=== PATIENT | female | born 1955 | race Caucasian/White ===

== ENCOUNTER 2019-04-12 19:10 | Inpatient (IN) | payer MEDICAID, MEDICARE ==
[~2019-04-12] VITALS: Ht 152.4 cm; Wt 72.8 kg
[2019-04-12] MEDS ORDERED: METO50TA7 PO (19:20)
[2019-04-12] MEDS ORDERED: GABA-1171 PO (19:20)
[2019-04-12] MEDS ORDERED: SIMV20TA2 PO (19:20)
[2019-04-12] MEDS ORDERED: LOSA50TA5 PO (19:20)
[2019-04-12 20:00] LABS: BASO # 0.1 10^3/uL (0.0-0.2); BASO % 0.8 % (0.0-1.0); EOS # 0.1 10^3/uL (0.0-0.50); EOS % 0.5 % (0.0-3.0); HEMATOCRIT 45.6 % (36.0-47.0); HEMOGLOBIN 16.4 g/dl (12.0-15.5); LYMPH # 4.1 10^3/uL (1.5-4.5); LYMPH % 36.5 % (24.0-44.0); MEAN CORPUSCULAR HEMOGLOBIN 33.2 pg (27.0-33.0); MEAN CORPUSCULAR VOLUME 92.3 fl (80.0-96.0); MONO # 0.7 10^3/uL (0.0-0.8); MONO % 6.7 % (0.0-5.0); NEUTROPHILS # 6.1 10^3/uL (1.8-7.7); NEUTROPHILS % 55.2 % (36.0-66.0); PLATELET COUNT, AUTOMATED 320 10^3/uL (150-450); RED BLOOD COUNT 4.94 10^6/uL (4.00-5.40); WHITE BLOOD COUNT 11.1 10^3/uL (4.0-10.0)
[2019-04-12] MEDS ORDERED: MECLIZINE 25 MG TABLET PO ONE (20:00)
[2019-04-12 20:04] LABS: INR 0.91; PROTHROMBIN TIME 12.3 SECONDS (12.1-14.4)
--- NOTE | 2019-04-12 20:18 | REP ---
Clinical: Acute cerebrovascular accident. Comparison: None. Findings: Age-related atrophy and microvascular ischemic changes are appreciated. The ventricles and sulci are symmetric. Christine-white differentiation is maintained. There is no evidence for acute intracranial hemorrhage, mass/mass effect, pathology or infarction. No extra-axial fluid collection. Calvarium is intact. Paranasal sinuses and mastoid air cells are clear. Impression: Age related atrophy and microvascular ischemic changes. No acute intracranial hemorrhage, infarction, or mass/mass effect. Electronically Signed by Rio Hernandez MD 04/12/2019 08:10 P
--- NOTE | 2019-04-12 20:19 | REP ---
Clinical: Cerebrovascular accident. Comparison: None. Findings: Mediastinum and cardiac silhouette are normal. Increased interstitial markings and mild prominent pulmonary vasculature is appreciated suggesting the possibility of bronchitis as well as mild pulmonary vascular congestion. No consolidation. No effusion. No pneumothorax. Skeletal structures intact. Impression: Increased coarsened interstitial markings and mild prominent pulmonary vasculature. Differential diagnosis includes but is not limited to chronic change, mild interstitial edema, and bronchitis. Electronically Signed by Rio Hernandez MD 04/12/2019 08:11 P
[2019-04-12 20:25] LABS: BLOOD UREA NITROGEN 8 MG/DL (7-18); CALCIUM LEVEL 9.2 MG/DL (8.8-10.2); CARBON DIOXIDE LEVEL 29 MEQ/L (21-32); CHLORIDE LEVEL 102 MEQ/L (98-107); CPK CREATINE PHOSPHOKINASE 119 U/L (26-192); CREATININE FOR GFR 0.78 MG/DL (0.55-1.30); GLOMERULAR FILTRATION RATE > 60.0 (>45); GLUCOSE, FASTING 117 MG/DL (70-100); MB/CK RELATIVE INDEX 2.02 (< OR =4); POTASSIUM SERUM 2.7 MEQ/L (3.5-5.1); SODIUM LEVEL 139 MEQ/L (136-145); TROPONIN I < 0.02 NG/ML (< 0.10)
[2019-04-12 20:42] LABS: MAGNESIUM LEVEL 1.6 MG/DL (1.8-2.4)
[2019-04-12] MEDS ORDERED: KCL 10MEQ/100ML SWI (KRUN) 10 MEQ in APPROPRIATE DILUENT 1 EA IV ONE (21:15)
[2019-04-12] MEDS ORDERED: POTASSIUM CHLORIDE 10 MEQ SR TABLET PO ONE (21:15)
[2019-04-12] MEDS ORDERED: MAGNESIUM OXIDE 400 MG TAB (MAG-OX) PO ONE (21:15)
[2019-04-12] MEDS ORDERED: MAG SULF 1GM/100ML (MAG RUN) 1 GM in APPROPRIATE DILUENT 1 EA IV ONE (21:15)
[2019-04-13] MEDS ORDERED: ASPI81TA21 PO (02:04)
[2019-04-13] MEDS ORDERED: ESOM1CAP5 PO (02:04)
[2019-04-13] MEDS ORDERED: POTA10TA17 PO (02:04)
[2019-04-13] MEDS ORDERED: FLUTISP (02:04)
[2019-04-13] MEDS ORDERED: ESTR1TD TD (02:04)
[2019-04-13] MEDS ORDERED: SPIRONOLACTONE 25 MG TAB PO SCH (02:30)
[2019-04-13] MEDS ORDERED: POTASSIUM CHLORIDE 10 MEQ SR TABLET PO ONE ×2 (02:45)
[2019-04-13] MEDS: KCL 10MEQ/100ML SWI (KRUN) 10 MEQ in APPROPRIATE DILUENT 1 EA IV SCH ×2 (02:48→05:07)
--- NOTE | 2019-04-13 03:12 | HPEPDOC ---
General Date of Admission April 13, 2019 at 02:23 Date of Service: April 13, 2019 Chief Complaint The patient is a 63-year-old female admitted with a reason for visit of Hypokalemia/ Hypomagnesemia. Source: Patient, RN/MD Exam Limitations: No limitations Severity: Moderate Associated Symptoms: Weakness, Dizziness History of Present Illness 63 year old female a with PMH of Hypertension, Hyperlipidemia, hypokalemia presented to the ED with chief complaints of dizziness for 2 days and increasing weakness for 2 to 3 weeks. She has noticed that she has been taking 3 to 4 naps during the day for the past 3 weeks before she would take only 1 nap during the day. The dizziness was not associated with any vision changes or any sensation of spinning of self or spinning of the room. She did not have any fullness of the ears. The weakness was all over her body in all 4 or her limbs without any pain or spasm. She did not have any diarrhea or vomiting. SHe did not have any fever or chills. In the ED she was found to be severely hypokalemic at 2.7 and hypomagnesemic also. She was started on potassium and magnesium supplementation. Even after getting 90 meq of potassium her potassium still remained at 2.7 after 3 hours. in the ED she was also found to have impacted wax in her right ear which was irrigated. So She was admitted. SHe was also hypertensive on presentation with Bp of 187/87. She was admitted for Hypokalemia wit hypomagnesemia with EKG changes. He ekg showed slight flattening of T waves. Home Medications Scheduled Aspirin (Aspir-Low) 81 Mg Tablet.dr, 81 MG PO DAILY, (Reported) Esomeprazole Magnesium (Esomeprazole Magnesium) 40 Mg Capsule.dr, 40 MG PO DAILY, (Reported) Estradiol (Estradiol) 0.1 Mg Patch.tdwk, 0.1 MG TD QWEEK, (Reported) WEDNESDAYS Gabapentin (Gabapentin) 100 Mg Capsule, 200 MG PO BID, (Reported) Losartan/Hydrochlorothiazide (Losartan-Hctz 50-12.5 mg Tab) 1 Each Tablet, 1 TAB PO DAILY, (Reported) Metoprolol Tartrate (Metoprolol Tartrate) 50 Mg Tablet, 75 MG PO BID, (Reported) Potassium Chloride (Potassium Chloride) 10 Meq Tab.er.prt, 10 MEQ PO DAILY, (Reported) Simvastatin (Simvastatin) 20 Mg Tablet, 20 MG PO QPM, (Reported) Scheduled PRN Fluticasone Propionate (Fluticasone Propionate) 16 Gm [place].susp, 1 SPRAY NA BID PRN for NASAL CONGESTION, (Reported) Allergies Coded Allergies: Penicillins (Verified Allergy, Severe, HEART STOPPED ( A CHILD), 04/13/19) cephalexin (Verified Allergy, Intermediate, PURPLE SPLOTCHES ON SKIN, 04/13/19) Past Medical History Medical History Hypertension, hyperlipidemia, hypokalemia, spinal problem Surgical History Total abdominal hystrectomy and ophorectomy, appendectomy, laparoscopy and lysis of adhesions and removal of a mass from the wall of sigmoid colon Family History Significant Family History: Hypertension Social History * Smoker: current smoker, greater than 1 pack/day Alcohol: Denies Drugs: denies A-FIB/CHADSVASC A-FIB History Current/History of A-Fib/PAF?: No Review of Systems Constitutional: Reports: Night Sweats, Weakness, Fatigue; Denies: Chills, Fever Eyes: Denies: Pain, Vision change ENT: Reports: Ear Pain (right ear had impacted wax which was flushed) Skin: Denies: Rash, Lesions, Breakdown Pulmonary: Denies: Dyspnea, Cough Cardiovascular: Reports: Lt Headedness; Denies: Chest Pain, Palpitations, Orthopnea, Paroxysmal Noc. Dyspnea Gastrointestinal: Denies: Nausea, Vomiting, Abdominal Pain, Diarrhea Genitourinary: Reports: Frequency Hematologic: Denies: Bruising, Bleeding Excessively Musculoskeletal: Denies: Neck Pain, Back Pain, Joint Pain, Muscle Pain, Spasms Neurological: Reports: Weakness; Denies: Numbness, Incoordination, Change in speech, Confusion, Seizures, Other Symptoms Physical Examination General Exam: Positive: Alert, Cooperative, No Acute Distress Eye Exam: Positive: PERRLA, Conjunctiva & lids normal, EOMI; Negative: Sclera icteric ENT Exam: Positive: Atraumatic, Mucous membr. moist/pink, Pharynx Normal Neck Exam: Positive: Supple; Negative: JVD, thyromegaly Chest Exam: Positive: Clear to auscultation, Normal air movement Heart Exam: Positive: Rate Normal, Regular Rhythm, Normal S1, Normal S2; Negative: Murmurs, Rubs Telemetry: Positive: No significant arrhythmia Abdomen Exam: Positive: Normal bowel sounds, Soft; Negative: Tenderness, Hepatospenomegaly Extremity Exam: Positive: Normal pulses; Negative: Clubbing, Cyanosis, Edema Skin Exam: Positive: Nl turgor and temperature; Negative: Breakdown, Lesion Neuro Exam: Positive: Normal Gait, Normal Speech, Cranial Nerves 3-12 NL, Reflexes 2+ Psych Exam: Positive: Mental status NL, Mood NL, Oriented x 3 Vital Signs Vital Signs Date Time Temp Pulse Resp B/P (MAP) Pulse Ox O2 Delivery O2 Flow Rate FiO2 04/12/19 22:45 58 20 159/66 (97) 93 Room Air 04/12/19 19:10 97.2 Laboratory Data Labs 24H Laboratory Tests 2 04/12/19 19:29: Immature Granulocyte % (Auto) 0.3, White Blood Count 11.1H, Red Blood Count 4.94, Hemoglobin 16.4H, Hematocrit 45.6, Mean Corpuscular Volume 92.3, Mean Corpuscular Hemoglobin 33.2H, Mean Corpuscular Hemoglobin Concent 36.0, Red Cell Distribution Width 12.8, Platelet Count 320, Neutrophils (%) (Auto) 55.2, Lymphocytes (%) (Auto) 36.5, Monocytes (%) (Auto) 6.7H, Eosinophils (%) (Auto) 0.5, Basophils (%) (Auto) 0.8, Neutrophils # (Auto) 6.1, Lymphocytes # (Auto) 4.1, Monocytes # (Auto) 0.7, Eosinophils # (Auto) 0.1, Basophils # (Auto) 0.1, Nucleated Red Blood Cells % (auto) 0.0, Prothrombin Time 12.3, Prothromb Time International Ratio 0.91, Activated Partial Thromboplast Time 30.0, Anion Gap 8, Glomerular Filtration Rate > 60.0, Blood Urea Nitrogen 8, Creatinine 0.78, Sodium Level 139, Potassium Level 2.7*L, Chloride Level 102, Carbon Dioxide Level 29, Calcium Level 9.2, Total Creatine Kinase 119, Magnesium Level 1.6L, Cr eatine Kinase MB 2.0, Creatine Kinase MB Relative Index 2.02, Troponin I < 0.02 04/12/19 20:14: Bedside Glucose (Misc Panel) 131H 04/13/19 01:15: POC Glucose (Misc Panel) 147H, POC Sodium (Misc Panel) 140, POC Potassium (Misc Panel) 2.7*L, POC Chloride (Misc Panel) 101, POC Total CO2 (Misc Panel) 26.0, POC Blood Urea Nitrogen (Misc Panel 4L, POC Ionized Calcium (Misc Panel) 4.5, POC Creatinine (Misc Panel) 0.5L, POC Hematocrit (Misc Panel) 42.0 CBC/BMP Laboratory Tests 04/12/19 19:29 Red Blood Count 4.94, Mean Corpuscular Volume 92.3, Mean Corpuscular Hemoglobin 33.2 H, Mean Corpuscular Hemoglobin Concent 36.0, Red Cell Distribution Width 12.8, Neutrophils (%) (Auto) 55.2, Lymphocytes (%) (Auto) 36.5, Monocytes (%) (Auto) 6.7 H, Eosinophils (%) (Auto) 0.5, Basophils (%) (Auto) 0.8, Neutrophils # (Auto) 6.1, Lymphocytes # (Auto) 4.1, Monocytes # (Auto) 0.7, Eosinophils # (Auto) 0.1, Basophils # (Auto) 0.1, Calcium Level 9.2, Total Creatine Kinase 119 Assessment/Plan 63 year old female a with PMH of Hypertension, Hyperlipidemia, hypokalemia presented to the ED with chief complaints of dizziness for 2 days and increasing weakness for 2 to 3 weeks. She has noticed that she has been taking 3 to 4 naps during the day for the past 3 weeks before she would take only 1 nap during the day. The dizziness was not associated with any vision changes or any sensation of spinning of self or spinning of the room. She did not have any fullness of the ears. The weakness was all over her body in all 4 or her limbs without any pain or spasm. She did not have any diarrhea or vomiting. SHe did not have any f ever or chills. In the ED she was found to be severely hypokalemic at 2.7 and hypomagnesemic also. She was started on potassium and magnesium supplementation. Even after getting 90 meq of potassium her potassium still remained at 2.7 after 3 hours. So She was admitted. SHe was also hypertensive on presentation with Bp of 187/87. She was admitted for Hypokalemia wit hypomagnesemia with EKG changes. Hypokalemia and Hypomagnesemia will continue with IV and oral supplementation Also will change her HCTZ to spironolactone Hypertension with hypokalemia raises the suspicion for hyperaldosteronism as a cause. Though the hypertension in this patient's case started after age 48 but still hyperaldosteronism is possible will order aldosterone an renin levels. will also consider CT abdomen to look at the adrenal glands. Hyperlipidemia continue statin Impacted wax in right ear this was irrigated in the ED. DVT prophylaxis ordered. Plan / VTE VTE Prophylaxis Ordered?: Yes EDEN LUCAS MD April 13, 2019 03:07
[2019-04-13 03:34] VITALS: BP 155/79
[2019-04-13] MEDS ORDERED: MAG SULF 1GM/100ML (MAG RUN) 1 GM in APPROPRIATE DILUENT 1 EA IV ONE (04:45)
[2019-04-13] MEDS ORDERED: NS 1,000 ML IV SCH (04:45)
[2019-04-13 06:00] VITALS: BP 140/66
[2019-04-13 06:12] LABS: BLOOD UREA NITROGEN 6 MG/DL (7-18); CALCIUM LEVEL 9.2 MG/DL (8.8-10.2); CARBON DIOXIDE LEVEL 28 MEQ/L (21-32); CHLORIDE LEVEL 107 MEQ/L (98-107); GLOMERULAR FILTRATION RATE > 60.0 (>45); GLUCOSE, FASTING 126 MG/DL (70-100); MAGNESIUM LEVEL 2.6 MG/DL (1.8-2.4); POTASSIUM SERUM 3.8 MEQ/L (3.5-5.1); SODIUM LEVEL 140 MEQ/L (136-145)
--- NOTE | 2019-04-13 06:32 | ECGEPIP ---
[facility] - ED Test Date: 2019-04-12 Pat Name: NATALIE BLACK Department: Room: - Gender: Female [employer] Officer: RAIMUNDO : 1955 Requested By: ALISHA Rosales Order Number: [id number] Reading MD: Marcelino Amin Measurements Intervals Transfer Rate: 63 P: 31 MI: 160 QRS: 10 QRSD: 95 T: 4 QT: 427 QTc: 438 Interpretive Statements SINUS RHYTHM LOW QRS VOLTAGE IN PRECORDIAL LEADS DIFFUSE NONSPECIFIC ST T WAVE CHANGES VS ISCHEMIA CLINICAL CORRELATION ADVISED Electronically Signed on 04-13-2019 6:32:13 EDT by Marcelino Amin
[2019-04-13] MEDS: GABAPENTIN 100 MG CAP PO SCH ×2 (08:21→22:03)
[2019-04-13] MEDS: ASPIRIN 81 MG ENTERIC TAB PO SCH (08:21)
[2019-04-13] MEDS: SPIRONOLACTONE 25 MG TAB PO SCH (08:21)
[2019-04-13] MEDS: METOPROLOL TART 50 MG TAB PO SCH ×2 (08:22→22:05)
[2019-04-13] MEDS: ENOXAPARIN 40 MG/0.4 ML SYRINGE (J1650) SC SCH (08:23)
[2019-04-13] MEDS ORDERED: LOSARTAN 50 MG TAB PO SCH (09:00)
[2019-04-13] MEDS ORDERED: POTASSIUM CHLORIDE 10 MEQ SR TABLET PO SCH (09:00)
[2019-04-13 14:00] VITALS: BP 127/64
--- NOTE | 2019-04-13 15:28 | IPNPDOC ---
Date Seen The patient was seen on 04/13/19. Progress Note SUBJECTIVE: Patient continues to complain of diarrhea, although her weakness is significantly better and she doesn't have the heaviness she felt her arm she had the previous days otherwise patient denies chest pain, shortness breath, nausea, vomiting, fevers, chills OBJECTIVE PHYSICAL EXAMINATION: VITAL SIGNS: Please see below. GENERAL: Pleasant elderly woman sitting up in bed awake alert oriented speaking in complete sentences no acute distress HEENT: Moist mucous membranes no elevation and CVP CARDIOVASCULAR: S1 S2 regular no additional heart sounds appreciated. RESPIRATORY: Clear to auscultation bilaterally. ABDOMINAL: Bowel sounds present abdomen soft and nontender EXTREMITIES: No clubbing cyanosis or edema NEUROLOGICAL: Spontaneously moves all 4 extremities cranial 2 through 12 grossly intact no gross focal deficits appreciated PSYCHOLOGICAL: Appropriate LABORATORY DATA, MICROBIOLOGY: Please see below. IMAGING STUDIES: Chest x-ray:Increased coarsened interstitial markings and mild prominent pulmonary vasculature. Differential diagnosis includes but is not limited to chronic change, mild interstitial edema, and bronchitis. Head CT:Age related atrophy and microvascular ischemic changes. No acute intracranial hemorrhage, infarction, or mass/mass effect. DVT prophylaxis ordered?: [Lovenox ASSESSMENT AND PLAN: This is a 63-year-old female with weakness secondary to hypokalemia. PROBLEMS: 1. Weakness secondary to hypokalemia: Significantly improved today physical therapy occupational therapy and been ordered. She's been discontinued from hydrochlorothiazide as started on spironolactone in addition to 40 mEq potassium daily and losartan. In the face of this she presented hypokalemic she has chronic loose stools and has had more bowel movements daily than usual. I have ordered a GI PCR panel. She informed that she urinates quite a bit as well which she also drinks a significant amount of caffeine. Is unclear if her losses are GI versus urinary. I will check a trans-tubular potassium gradient. In the setting of her hypertension and hypokalemia a renin aldosterone levels have been ordered as well. 2. Hypertension: Controlled, continue with her spironolactone losartan and metoprolol is fairly resistant hypertension such a renin aldosterone levels were checked every benefit from a further workup for secondary causes of hypertension on the outpatient setting. 3. Gastroesophageal reflux disease: Continue with PPI. 4. Chronic back pain related to a tethered spine: Continue with gabapentin 5. Dyslipidemia: Continue simvastatin DISPOSITION: Pending PT OT clinical improvement. VS, I&O, 24H, Fishbone Vital Signs/I&O Vital Signs Date Time Temp Pulse Resp B/P (MAP) Pulse Ox O2 Delivery O2 Flow Rate FiO2 04/13/19 14:00 97.9 57 18 127/64 (85) 97 04/13/19 03:16 Room Air I&O- Last 24 Hours up to 6 AM 04/13/19 06:00 Intake Total 200 ml Balance 200 ml Laboratory Data 24H LABS Laboratory Tests 2 04/12/19 19:29: Immature Granulocyte % (Auto) 0.3, White Blood Count 11.1H, Red Blood Count 4.94, Hemoglobin 16.4H, Hematocrit 45.6, Mean Corpuscular Volume 92.3, Mean Corpuscular Hemoglobin 33.2H, Mean Corpuscular Hemoglobin Concent 36.0, Red Cell Distribution Width 12.8, Platelet Count 320, Neutrophils (%) (Auto) 55.2, Lymphocytes (%) (Auto) 36.5, Monocytes (%) (Auto) 6.7H, Eosinophils (%) (Auto) 0.5, Basophils (%) (Auto) 0.8, Neutrophils # (Auto) 6.1, Lymphocytes # (Auto) 4.1, Monocytes # (Auto) 0.7, Eosinophils # (Auto) 0.1, Basophils # (Auto) 0.1, Nucleated Red Blood Cells % (auto) 0.0, Prothrombin Time 12.3, Prothromb Time International Ratio 0.91, Activated Partial Thromboplast Time 30.0, Anion Gap 8, Glomerular Filtration Rate > 60.0, Blood Urea Nitrogen 8, Creatinine 0.78, Sodium Level 139, Potassium Level 2.7*L, Chloride Level 102, Carbon Dioxide Level 29, Calcium Level 9.2, Total Creatine Kinase 119, Magnesium Level 1.6L, Creatine Kinase MB 2.0, Creatine Kinase MB Relative Index 2.02, Troponin I < 0.02 04/12/19 20:14: Bedside Glucose (Misc Panel) 131H 04/13/19 01:15: POC Glucose (Misc Panel) 147H, POC Sodium (Misc Panel) 140, POC Potassium (Misc Panel) 2.7*L, POC Chloride (Misc Panel) 101, POC Total CO2 (Misc Panel) 26.0, POC Blood Urea Nitrogen (Misc Panel 4L, POC Ionized Calcium (Misc Panel) 4.5, POC Creatinine (Misc Panel) 0.5L, POC Hematocrit (Misc Panel) 42.0 04/13/19 05:30: Anion Gap 5L, Glomerular Filtration Rate > 60.0, Blood Urea Nitrogen 6L, Creatinine 0.70, Sodium Level 140, Potassium Level 3.8#, Chloride Level 107, Carbon Dioxide Level 28, Calcium Level 9.2, Magnesium Level 2.6H CBC/BMP Laboratory Tests 04/12/19 19:29 Red Blood Count 4.94, Mean Corpuscular Volume 92.3, Mean Corpuscular Hemoglobin 33.2 H, Mean Corpuscular Hemoglobin Concent 36.0, Red Cell Distribution Width 12.8, Neutrophils (%) (Auto) 55.2, Lymphocytes (%) (Auto) 36.5, Monocytes (%) (Auto) 6.7 H, Eosinophils (%) (Auto) 0.5, Basophils (%) (Auto) 0.8, Neutrophils # (Auto) 6.1, Lymphocytes # (Auto) 4.1, Monocytes # (Auto) 0.7, Eosinophils # (Auto) 0.1, Basophils # (Auto) 0.1, Calcium Level 9.2, Total Creatine Kinase 119 04/13/19 05:30 Calcium Level 9.2 JARAD MORALES MD April 13, 2019 15:28
[2019-04-13 19:30] LABS: POTASSIUM RANDOM URINE 23.1 MEQ/L
[2019-04-13] MEDS ORDERED: SIMVASTATIN 20 MG TAB PO SCH (21:00)
[2019-04-13] MEDS: VANCOMYCIN ORAL SOL 250MG/5ML ORAL SYRINGE PO SCH ×2 (21:54→23:05)
[2019-04-13 22:00] VITALS: BP 159/74
[2019-04-14] MEDS: VANCOMYCIN ORAL SOL 250MG/5ML ORAL SYRINGE PO SCH ×2 (05:50→12:16)
[2019-04-14 06:00] VITALS: BP 166/74
[2019-04-14 06:12] LABS: BASO # 0.1 10^3/uL (0.0-0.2); BASO % 0.9 % (0.0-1.0); EOS # 0.1 10^3/uL (0.0-0.50); EOS % 0.9 % (0.0-3.0); HEMATOCRIT 44.7 % (36.0-47.0); HEMOGLOBIN 15.2 g/dl (12.0-15.5); LYMPH # 4.4 10^3/uL (1.5-4.5); LYMPH % 48.2 % (24.0-44.0); MEAN CORPUSCULAR HEMOGLOBIN 31.6 pg (27.0-33.0); MEAN CORPUSCULAR VOLUME 92.9 fl (80.0-96.0); MONO # 0.7 10^3/uL (0.0-0.8); MONO % 8.1 % (0.0-5.0); NEUTROPHILS # 3.8 10^3/uL (1.8-7.7); NEUTROPHILS % 41.6 % (36.0-66.0); PLATELET COUNT, AUTOMATED 288 10^3/uL (150-450); RED BLOOD COUNT 4.81 10^6/uL (4.00-5.40); WHITE BLOOD COUNT 9.1 10^3/uL (4.0-10.0)
[2019-04-14 06:41] LABS: BLOOD UREA NITROGEN 9 MG/DL (7-18); CALCIUM LEVEL 9.3 MG/DL (8.8-10.2); CARBON DIOXIDE LEVEL 25 MEQ/L (21-32); CHLORIDE LEVEL 109 MEQ/L (98-107); CREATININE FOR GFR 0.79 MG/DL (0.55-1.30); GLOMERULAR FILTRATION RATE > 60.0 (>45); GLUCOSE, FASTING 96 MG/DL (70-100); SODIUM LEVEL 139 MEQ/L (136-145)
[2019-04-14 08:34] VITALS: BP 158/78
[2019-04-14] MEDS: GABAPENTIN 100 MG CAP PO SCH (08:34)
[2019-04-14] MEDS: SPIRONOLACTONE 25 MG TAB PO SCH (08:35)
[2019-04-14] MEDS: ASPIRIN 81 MG ENTERIC TAB PO SCH (08:35)
[2019-04-14] MEDS: ENOXAPARIN 40 MG/0.4 ML SYRINGE (J1650) SC SCH (08:36)
[2019-04-14] MEDS ORDERED: LOSARTAN 50 MG TAB PO SCH (09:00)
[2019-04-14] MEDS ORDERED: METOPROLOL TART 50 MG TAB PO SCH (09:00)
[2019-04-14] MEDS ORDERED: FIRV50SO PO (11:25)
[2019-04-14] MEDS ORDERED: ALDA25TA2 PO (11:43)
[2019-04-14] MEDS ORDERED: COZA50TA PO (11:43)
[2019-04-14] MEDS ORDERED: LOPR1TAB6 PO (11:43)
--- NOTE | 2019-04-14 12:58 | DS.PDOC ---
Discharge Summary General Date of Admission April 13, 2019 at 02:23 Date of Discharge 04/14/2019 Discharge Summary DISCHARGE DIAGNOSIS:C. difficile colitis SECONDARY DIAGNOSIS: 1. Hypokalemia 2. Hypomagnesemia 3. Diarrhea 4. Weakness 5. Tethered spine with chronic back pain 6. Gastroesophageal reflux disease 7. Dyslipidemia PROCEDURES PERFORMED DURING STAY: None. CONSULTANTS: None HOSPITAL COURSE: Patient is a 63-year-old female with a history of hypertension and hypokalemia who presented with significant weakness she was found to be fairly severely hypokalemic as well as hypomagnesemic. Upon further history taking she admitted to have having significantly more bowel movements than usual. She is normally constipated secondary to pain medication however lately for the last several days she has not been well at all and has been having several bowel movements per day. A GI PCR panel was collected which did return positive for C. difficile. The patient's potassium and magnesium were supplemented aggressively she was started on by mouth vancomycin had very good resolution of her symptoms. She was seen and evaluated by occupational and physical therapy and cleared. There was some concern for hypokalemia in the setting of hypertension as such her renin aldosterone levels were checked and are currently pending at the time of discharge. She is normally on losartan she was started on spironolactone as well during the stay in her home standing potassium supplementation has been discontinued. Her home hydrochlorothiazide is discontinued as well and her blood pressures but optimally controlled. DISCHARGE MEDICATIONS: Please see below. ALLERGIES: Please see below. SUBJECTIVE: Patient denies any further complaints of diarrhea or significant bowel movements. She tells me that her weakness has resolved and she feels back to her normal. She denies abdominal pain otherwise patient denies chest pain, shortness breath, nausea, vomiting, fevers, chills OBJECTIVE PHYSICAL EXAMINATION: VITAL SIGNS: Please see below. GENERAL: Pleasant elderly woman sits up too great me as I enter the room alert oriented speaking in complete sentences no acute distress HEENT: Moist mucous membranes no elevation and CVP CARDIOVASCULAR: S1 S2 regular no additional heart sounds appreciated. RESPIRATORY: Clear to auscultation bilaterally. ABDOMINAL: Bowel sounds present abdomen soft and nontender fairly benign exam EXTREMITIES: No clubbing cyanosis or edema. NEUROLOGICAL: Spontaneously moves all 4 extremities cranial 2 through 12 grossly intact no gross focal deficits appreciated PSYCHOLOGICAL: Appropriate LABORATORY DATA, MICROBIOLOGY: Please see below. IMAGING STUDIES: Chest x-ray:Increased coarsened interstitial markings and mild prominent pulmonary vasculature. Differential diagnosis includes but is not limited to chronic change, mild interstitial edema, and bronchitis. Head CT:Age related atrophy and microvascular ischemic changes. No acute intracranial hemorrhage, infarction, or mass/mass effect. DVT prophylaxis ordered?:Lovenox ASSESSMENT AND PLAN: This is a 63-year-old female with weakness secondary to hypokalemia secondary to C. difficile colitis PROBLEMS: 1. Weakness secondary to hypokalemia secondary to C. difficile colitis: Her weakness has resolved she's been cleared by physical therapy and occupational therapy. Her hypokalemia has resolved. She is not having significant bowel movements any further she is to continue by mouth vancomycin for 10 day course w e did call the pharmacy and ensure that this isn't affordable medication for her and covered by her insurance. In regards to her hypokalemia renin and aldosterone level is currently pending as of a history of hypertension that was of concern for this as a potential etiology for her constellation of hypertension and hypokalemia. However given the increased frequency of her bowel movements are more suspicious for this being secondary to C. difficile. Her home under chlorothiazide has been discontinued she's been started on spironolactone her home potassium supplementation as has been discontinued I have informed her she should would benefit from a recheck of her potassium level within the next 2 weeks for primary care provider's office. 2. Hypertension: Controlled, continue with her spironolactone losartan and metoprolol she has fairly resistant hypertension such a renin aldosterone levels were checked every benefit from a further workup for secondary causes of hypertension on the outpatient setting. 3. Gastroesophageal reflux disease: Continue with PPI. Her PPI may be a predisposing factor for her C. difficile colitis infection I've informed her she should review itsnecessity with her primary care provider 4. Chronic back pain related to a tethered spine: Continue with gabapentin 5. Dyslipidemia: Continue simvastatin 6. Bradycardia: She is known to be mildly bradycardic overnight asymptomatic into the 40s. Her home beta angelic dose has been titrated down from 75 mg twice a day to 50 mg twice a day and her heart rate is improved this morning DISPOSITION: Home to self-care. DISCHARGE CONDITION: Improved and Stable. FOLLOW UP: PCP within 7 days ACTIVITY: As prior to admission. DIET: As prior to admission TIME SPENT ON DISCHARGE: 50 minutes Vital Signs/I&Os Vital Signs Date Time Temp Pulse Resp B/P (MAP) Pulse Ox O2 Delivery O2 Flow Rate FiO2 04/14/19 08:34 81 158/78 04/14/19 06:00 97.9 18 97 04/13/19 03:16 Room Air I&O- Last 24 Hours up to 6 AM 04/14/19 06:00 Intake Total 1890 ml Output Total 80 ml Balance 1810 ml Laboratory Data Labs 24H Laboratory Tests 2 04/13/19 18:35: Urine Random Creatinine 235.0, Urine Random Potassium 23.1 04/14/19 06:00: Immature Granulocyte % (Auto) 0.3, White Blood Count 9.1, Red Blood Count 4.81, Hemoglobin 15.2, Hematocrit 44.7, Mean Corpuscular Volume 92.9, Mean Corpuscular Hemoglobin 31.6, Mean Corpuscular Hemoglobin Concent 34.0, Red Cell Distribution Width 12.9, Platelet Count 288, Neutrophils (%) (Auto) 41.6, Lymphocytes (%) ( Auto) 48.2H, Monocytes (%) (Auto) 8.1H, Eosinophils (%) (Auto) 0.9, Basophils (%) (Auto) 0.9, Neutrophils # (Auto) 3.8, Lymphocytes # (Auto) 4.4, Monocytes # (Auto) 0.7, Eosinophils # (Auto) 0.1, Basophils # (Auto) 0.1, Nucleated Red Blood Cells % (auto) 0.0, Anion Gap 5L, Glomerular Filtration Rate > 60.0, Blood Urea Nitrogen 9, Creatinine 0.79, Sodium Level 139, Potassium Level 4.0, Chloride Level 109H, Carbon Dioxide Level 25, Calcium Level 9.3 CBC/BMP Laboratory Tests 04/14/19 06:00 Red Blood Count 4.81, Mean Corpuscular Volume 92.9, Mean Corpuscular Hemoglobin 31.6, Mean Corpuscular Hemoglobin Concent 34.0, Red Cell Distribution Width 12.9, Neutrophils (%) (Auto) 41.6, Lymphocytes (%) (Auto) 48.2 H, Monocytes (%) (Auto) 8.1 H, Eosinophils (%) (Auto) 0.9, Basophils (%) (Auto) 0.9, Neutrophils # (Auto) 3.8, Lymphocytes # (Auto) 4.4, Monocytes # (Auto) 0.7, Eosinophils # (Auto) 0.1, Basophils # (Auto) 0.1, Calcium Level 9.3 Microbiology Microbiology 04/13/19 Gastrointestinal Tract Panel (PCR) - Final, Complete Clostridium Difficile A/B Discharge Medications Scheduled Aspirin (Aspir-Low) 81 Mg Tablet.dr, 81 MG PO DAILY, (Reported) Esomeprazole Magnesium (Esomeprazole Magnesium) 40 Mg Capsule.dr, 40 MG PO DAILY, (Reported) Estradiol (Estradiol) 0.1 Mg Patch.tdwk, 0.1 MG TD QWEEK, (Reported) WEDNESDAYS Gabapentin (Gabapentin) 100 Mg Capsule, 200 MG PO BID, (Reported) Losartan Potassium (Cozaar) 50 Mg Tablet, 75 MG PO DAILY Metoprolol Tartrate (Lopressor) 50 Mg Tablet, 50 MG PO BID Simvastatin (Simvastatin) 20 Mg Tablet, 20 MG PO QPM, (Reported) Spironolactone (Aldactone) 25 Mg Tablet, 25 MG PO QAM Vancomycin HCl (Firvanq) 50 Mg/1 Ml Soln.recon, 250 MG PO Q6H Please dispense 10d supply Scheduled PRN Fluticasone Propionate (Fluticasone Propionate) 16 Gm [place].susp, 1 SPRAY NA BID PRN for NASAL CONGESTION, (Reported) Allergies Coded Allergies: Penicillins (Verified Allergy, Severe, HEART STOPPED ( A CHILD), 04/13/19) cephalexin (Verified Allergy, Intermediate, PURPLE SPLOTCHES ON SKIN, 04/13/19) JARAD MORALES MD April 14, 2019 12:58
== END 2019-04-14 13:40 | disposition home or self-care (01) | DRG 373 ==
LOC: M ED 19:10 → M ED INP 04-13 02:23 → M MSPAV 04-13 03:35
PROVIDERS: ADMIT Internal Medicine Nephrology; ATTEND Internal Medicine
DX: A04.72 Enterocolitis due to Clostridium difficile, not specified as recurrent (principal); E87.6 Hypokalemia; E83.42 Hypomagnesemia; K21.9 Gastro-esophageal reflux disease without esophagitis; E78.5 Hyperlipidemia, unspecified; I10 Essential (primary) hypertension; M54.9 Dorsalgia, unspecified; R00.1 Bradycardia, unspecified; Z79.82 Long term (current) use of aspirin; Z79.899 Other long term (current) drug therapy; Z88.0 Allergy status to penicillin; Z88.8 Allergy status to other drugs, medicaments and biological substances

== ENCOUNTER → 2021-11-07 | Outpatient (CLI) | payer MEDICARE, MEDICAID ==
[~2021-11-07] MED LIST: ALDA25TA2 PO; ASPI81TA21 PO; COZA50TA PO; ESOM1CAP5 PO; ESTR1TD TD; FIRV50SO PO; FLUTISP; GABA-1171 PO; LOPR1TAB6 PO; LOSA50TA5 PO; METO50TA7 PO; POTA10TA17 PO; SIMV20TA22 PO
--- NOTE | 2021-11-07 23:00 | ECHO ---
ECHOCARDIOGRAM DATE OF PROCEDURE: 11/07/2021 Age: 65 Gender: Female Height: 152 cm Weight: 66 kg REFERRING PHYSICIAN: Reason INDICATION: Syncope MEASUREMENTS: IVS 1.0 cm LV 3.4 cm LVPW 1.0 cm LA 3.1 cm Aorta 3.0 cm IVC 1.4 cm Mitral E wave velocity 73 A wave 88 Left atrium volume index 28 FINDINGS: This study is of acceptable technical quality. Underlying sinus rhythm. Left ventricle is normal size and systolic function with estimated EF around 60%-65%. No segmental wall motion abnormalities are appreciated. Normal RV size and systolic function. Both atria appear normal. Aortic, mitral and tricuspid valves appear anatomically normal. Pulmonic valve was not well seen. Mild sclerotic abnormalities of the aortic valve are noted, but mobility is preserved. No pericardial effusion is noted. Inferior vena cava is normal size. Aortic root is normal. Aortic arch was not well visualized. Doppler interrogation reveals competent aortic, mitral and tricuspid valves. Mitral inflow pattern indicates grade 1 diastolic dysfunction. CONCLUSIONS: 1. Study is of acceptable technical quality. 2. Normal LV size with normal LV systolic function and grade 1 diastolic dysfunction. 3. No significant valvular disease. 4. Normal central venous pressure. No findings to provide obvious explanation for syncopal event.
--- NOTE | 2021-11-09 07:17 | ECGEPIP ---
[facility] Test Date: 2021-11-07 Pat Name: NATALIE BLACK Department: Room: - Gender: Female [employer] Administrator: [email or web address] : 1955 Requested By: Martín Morris Order Number: [id number] Reading MD: Klaudia Montemayor Measurements Intervals [place] Rate: 67 P: 58 VT: 158 QRS: 30 QRSD: 82 T: 21 QT: 416 QTc: 439 Interpretive Statements Normal sinus rhythm Since 04/16/19 voltage is now normal and minimal STT abnormalities are no longer p present Electronically Signed on 11-09-2021 7:17:19 EST by Klaudia Montemayor
--- NOTE | 2021-11-09 07:20 | HOLTMON ---
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 Average HR 77 bpm. No pauses and no episodes of atrial fibrillation. Very rare isolated PAC's and PVC's. No reported symptoms. Normal Holter monitor. Electronically Signed on 11-09-2021 7:19:36 EST by Klaudia Montemayor
== END ==
LOC: M CARPUL 14:12
PROVIDERS: ATTEND Internal Medicine
DX: R55 Syncope and collapse (principal)

== ENCOUNTER 2023-07-14 13:15 | Observation (INO) | payer MEDICARE, MEDICAID ==
[~2023-07-14] VITALS: Ht 152.4 cm; Wt 56.9 kg
[~2023-07-14 13:15] MED LIST changes: -COZA50TA PO; +FLUT50SP17; -FLUTISP; +LOSA-528 PO; +POTA-150 PO; -POTA10TA17 PO
[2023-07-14 15:13] LABS: HEMATOCRIT 49.3 % (36.0-47.0); HEMOGLOBIN 17.1 g/dl (12.0-15.5); MEAN CORPUSCULAR HEMOGLOBIN 32.6 pg (27.0-33.0); MEAN CORPUSCULAR HGB CONC 34.7 g/dl (32.0-36.5); MEAN CORPUSCULAR VOLUME 93.9 fl (80.0-96.0); PLATELET COUNT, AUTOMATED 325 10^3/uL (150-450); RED BLOOD COUNT 5.25 10^6/uL (4.00-5.40); WHITE BLOOD COUNT 17.5 10^3/uL (4.0-10.0)
[2023-07-14 15:38] LABS: ALBUMIN 3.6 G/DL (3.2-5.2); BILIRUBIN,DIRECT 0.2 MG/DL (<0.4); BILIRUBIN,TOTAL 0.4 MG/DL (0.3-1.2); TOTAL PROTEIN 7.3 G/DL (5.7-8.2)
[2023-07-14] MEDS ORDERED: NS 1,000 ML IV SCH (15:45)
[2023-07-14 16:06] LABS: CALCIUM LEVEL 9.3 MG/DL (8.3-10.6); CREATININE FOR GFR 1.59 MG/DL (0.55-1.30); GLOMERULAR FILTRATION RATE 34.3 (>45); POTASSIUM SERUM 3.4 MMOL/L (3.5-5.1)
[2023-07-14 16:19] LABS: ATYPICAL LYMPH 2 % (0-5); BASOPHILS 1 % (0-1); LYMPHOCYTES 15 % (16-44); MONOCYTES 16 % (0-5); NEUTROPHILS 65 % (28-66)
[2023-07-14 16:20] LABS: PLATELET ESTIMATE NORMAL (NORMAL)
[2023-07-14] MEDS ORDERED: ISOVUE-370 76% 100ML VIAL As Ordered ONE (16:32)
[2023-07-14] MEDS ORDERED: metroNIDAZOLE 250 MG in IV 1 EA IV ONE (18:30)
[2023-07-14] MEDS ORDERED: metroNIDAZOLE 500 MG in IV 1 EA IV ONE (18:35)
[2023-07-14] MEDS ORDERED: ONDANSETRON 4MG 2ML VIAL IV PRN (18:45)
[2023-07-14] MEDS: KCL 10MEQ/100ML SWI (KRUN) 10 MEQ in IV 1 EA IV SCH ×4 (19:58→23:00)
[2023-07-14] MEDS ORDERED: LR 1,000 ML IV ONE (20:00)
[2023-07-14] MEDS ORDERED: ASPI81TA26 PO (20:00)
[2023-07-14] MEDS ORDERED: METO50TA7 PO ×2 (20:02)
[2023-07-14] MEDS ORDERED: HOME MED LIST COMPLETE! XX SCH (20:05)
[2023-07-14] MEDS ORDERED: FLUTICASONE PROP 0.05% NASAL SPRAY 16 GM (FLONASE) PRN (20:30)
[2023-07-14 20:45] VITALS: BP 101/60; TEMP 97.5; O2SAT 96
[2023-07-14] MEDS: METOPROLOL TART 50 MG TAB PO SCH (21:00)
[2023-07-14] MEDS: GABAPENTIN 100 MG CAP PO SCH (21:59)
[2023-07-14] MEDS: SIMVASTATIN 20 MG TAB PO SCH (22:00)
[2023-07-14] MEDS ORDERED: POTASSIUM CHLORIDE 10% LIQ 20MEQ/15ML UDC PO ONE (23:00)
[2023-07-15] MEDS: metroNIDAZOLE 500 MG in IV 1 EA IV SCH ×3 (02:50→18:35)
[2023-07-15 06:00] VITALS: BP 120/76; TEMP 97.7; O2SAT 95
[2023-07-15 07:16] LABS: HEMATOCRIT 49.5 % (36.0-47.0); HEMOGLOBIN 16.9 g/dl (12.0-15.5); MEAN CORPUSCULAR HEMOGLOBIN 31.6 pg (27.0-33.0); MEAN CORPUSCULAR HGB CONC 34.1 g/dl (32.0-36.5); MEAN CORPUSCULAR VOLUME 92.7 fl (80.0-96.0); PLATELET COUNT, AUTOMATED 314 10^3/uL (150-450); RED BLOOD COUNT 5.34 10^6/uL (4.00-5.40); WHITE BLOOD COUNT 16.5 10^3/uL (4.0-10.0)
[2023-07-15 07:42] LABS: CREATININE FOR GFR 1.62 MG/DL (0.55-1.30); GLOMERULAR FILTRATION RATE 33.5 (>45); POTASSIUM SERUM 3.3 MMOL/L (3.5-5.1)
[2023-07-15] MEDS: METOPROLOL TART 50 MG TAB PO SCH ×2 (09:00→21:04)
[2023-07-15] MEDS: ASPIRIN 81MG ENTERIC TABLET PO SCH (09:51)
[2023-07-15] MEDS: GABAPENTIN 100 MG CAP PO SCH ×2 (09:51→21:05)
[2023-07-15] MEDS: ENOXAPARIN 40MG/0.4ML SYRINGE (J1650 PER 10MG) SC SCH (09:52)
[2023-07-15] MEDS: POTASSIUM CHLORIDE 10MEQ SR TABLET PO SCH ×2 (09:59→11:51)
[2023-07-15] MEDS: D5W/LR 1,000 ML IV SCH ×2 (11:36→19:06)
[2023-07-15 15:15] VITALS: BP 130/81
[2023-07-15] MEDS: METOPROLOL TARTRATE 100MG TAB PO SCH (15:21)
[2023-07-15] MEDS ORDERED: CALCIUM CARBONATE 500 MG CHEW U/D PO PRN (19:10)
[2023-07-15] MEDS: SIMVASTATIN 20 MG TAB PO SCH (21:04)
[2023-07-15 21:36] VITALS: BP 108/63; TEMP 97.7; O2SAT 94
[2023-07-16] MEDS: metroNIDAZOLE 500 MG in IV 1 EA IV SCH ×3 (03:29→18:30)
[2023-07-16 05:18] VITALS: BP 108/63; TEMP 97.7; O2SAT 94
[2023-07-16] MEDS: D5W/LR 1,000 ML IV SCH (06:00)
[2023-07-16 06:19] LABS: BASO # 0.1 10^3/uL (0.0-0.2); BASO % 0.7 % (0.0-1.0); EOS # 0.1 10^3/uL (0.0-0.5); EOS % 0.8 % (0.0-3.0); HEMATOCRIT 44.5 % (36.0-47.0); HEMOGLOBIN 15.3 g/dl (12.0-15.5); LYMPH % 25.4 % (24.0-44.0); MEAN CORPUSCULAR HEMOGLOBIN 31.8 pg (27.0-33.0); MEAN CORPUSCULAR HGB CONC 34.4 g/dl (32.0-36.5); MEAN CORPUSCULAR VOLUME 92.5 fl (80.0-96.0); MONO # 1.5 10^3/uL (0.0-0.8); MONO % 12.1 % (2.0-8.0); NEUTROPHILS # 7.3 10^3/uL (1.5-8.5); NEUTROPHILS % 60.5 % (36.0-66.0); PLATELET COUNT, AUTOMATED 272 10^3/uL (150-450); RED BLOOD COUNT 4.81 10^6/uL (4.00-5.40)
[2023-07-16 06:48] LABS: BLOOD UREA NITROGEN 19 MG/DL (9-23); CALCIUM LEVEL 8.3 MG/DL (8.3-10.6); CARBON DIOXIDE LEVEL 23 MMOL/L (20-31); CHLORIDE LEVEL 118 MMOL/L (98-107); CREATININE FOR GFR 0.88 MG/DL (0.55-1.30); GLOMERULAR FILTRATION RATE > 60.0 (>45); GLUCOSE, FASTING 120 MG/DL (74-106); POTASSIUM SERUM 3.2 MMOL/L (3.5-5.1); SODIUM LEVEL 140 MMOL/L (136-145)
[2023-07-16] MEDS ORDERED: LOPERAMIDE 2 MG CAPLET PO PRN (07:15)
[2023-07-16] MEDS ORDERED: PINK BISMUTH SUSP 524MG/30ML ORAL SYRINGE PO PRN (07:50)
[2023-07-16] MEDS: ENOXAPARIN 40MG/0.4ML SYRINGE (J1650 PER 10MG) SC SCH (10:47)
[2023-07-16] MEDS: GABAPENTIN 100 MG CAP PO SCH ×2 (10:48→20:01)
[2023-07-16] MEDS: ASPIRIN 81MG ENTERIC TABLET PO SCH (10:48)
[2023-07-16] MEDS: FAMOTIDINE 20 MG TAB PO SCH (10:49)
[2023-07-16] MEDS: POTASSIUM CHLORIDE 10MEQ SR TABLET PO SCH ×2 (10:49→12:28)
[2023-07-16] MEDS: METOPROLOL TART 50 MG TAB PO SCH ×2 (10:52→20:01)
[2023-07-16] MEDS ORDERED: PINK BISMUTH SUSP 524MG/30ML ORAL SYRINGE PO SCH (12:00)
[2023-07-16] MEDS ORDERED: POTASSIUM CHLORIDE 10MEQ SR TABLET PO ONE (13:00)
[2023-07-16 14:00] VITALS: BP 119/70; TEMP 97.5; O2SAT 98
[2023-07-16] MEDS: METOPROLOL TARTRATE 100MG TAB PO SCH (16:12)
[2023-07-16] MEDS: SIMVASTATIN 20 MG TAB PO SCH (20:01)
[2023-07-16 21:30] VITALS: BP 114/53; TEMP 97.7; O2SAT 97
[2023-07-17] MEDS: metroNIDAZOLE 500 MG in IV 1 EA IV SCH (02:59)
[2023-07-17 06:00] VITALS: BP 110/40; TEMP 97.5; O2SAT 97
[2023-07-17 06:21] LABS: HEMATOCRIT 42.7 % (36.0-47.0); HEMOGLOBIN 14.5 g/dl (12.0-15.5); MEAN CORPUSCULAR VOLUME 94.3 fl (80.0-96.0); PLATELET COUNT, AUTOMATED 266 10^3/uL (150-450); RED BLOOD COUNT 4.53 10^6/uL (4.00-5.40); WHITE BLOOD COUNT 12.6 10^3/uL (4.0-10.0)
[2023-07-17 06:49] LABS: BLOOD UREA NITROGEN 14 MG/DL (9-23); CALCIUM LEVEL 8.2 MG/DL (8.3-10.6); CARBON DIOXIDE LEVEL 23 MMOL/L (20-31); CHLORIDE LEVEL 117 MMOL/L (98-107); CREATININE FOR GFR 0.78 MG/DL (0.55-1.30); GLOMERULAR FILTRATION RATE > 60.0 (>45); GLUCOSE, FASTING 82 MG/DL (74-106); POTASSIUM SERUM 4.4 MMOL/L (3.5-5.1); SODIUM LEVEL 144 MMOL/L (136-145)
[2023-07-17 07:12] LABS: BASOPHILS 1 % (0-1); EOSINOPHILS 1 % (0-3); LYMPHOCYTES 39 % (16-44); MONOCYTES 11 % (0-5); NEUTROPHILS 48 % (28-66)
[2023-07-17 07:13] LABS: PLATELET ESTIMATE NORMAL (NORMAL)
[2023-07-17 07:23] VITALS: BP 140/76
[2023-07-17 08:19] VITALS: BP 140/76
[2023-07-17] MEDS: METOPROLOL TART 50 MG TAB PO SCH (08:19)
[2023-07-17] MEDS: FAMOTIDINE 20 MG TAB PO SCH (08:19)
[2023-07-17] MEDS: GABAPENTIN 100 MG CAP PO SCH (08:19)
[2023-07-17] MEDS: ASPIRIN 81MG ENTERIC TABLET PO SCH (08:19)
[2023-07-17] MEDS: ENOXAPARIN 40MG/0.4ML SYRINGE (J1650 PER 10MG) SC SCH (08:21)
[2023-07-17] MEDS ORDERED: PEPT262S PO (09:57)
[2023-07-17] MEDS ORDERED: METR-265 PO (09:57)
== END 2023-07-17 12:30 | disposition home or self-care (01) ==
LOC: M ED 13:15 → M ED INP 13:16 → ENRESERV 19:59 → M MS5PR 21:39
PROVIDERS: ADMIT Internal Medicine; ATTEND Student in an Organized Health Care Education/Training Program
DX: A07.1 Giardiasis [lambliasis] (principal); N17.0 Acute kidney failure with tubular necrosis; E86.0 Dehydration; E87.6 Hypokalemia; D17.71 Benign lipomatous neoplasm of kidney; I10 Essential (primary) hypertension; E78.5 Hyperlipidemia, unspecified; K21.9 Gastro-esophageal reflux disease without esophagitis; I77.79 Dissection of other specified artery; Z85.3 Personal history of malignant neoplasm of breast; Z79.82 Long term (current) use of aspirin; Z79.899 Other long term (current) drug therapy; Z88.0 Allergy status to penicillin; Z88.1 Allergy status to other antibiotic agents
CPT/HCPCS: 36415; 74177; 80048; 80076; 81001; 83605; 83690; 83735; 84145; 85025; 85027; 87040; 87507; 87635; 96361; 96365; 96366; 96372; 96375; 99284; G0378; J1650; J1836; J2405; Q9967

== ENCOUNTER → 2024-03-27 | Outpatient (CLI) | payer MEDICARE, MEDICAID ==
[~2024-03-27] MED LIST changes: +ASPI81TA26 PO; -FLUT50SP17; +FLUTISP; +METR-265 PO; +PEPT262S PO
== END ==
LOC: M PLAIMG 09:17
PROVIDERS: ATTEND Student in an Organized Health Care Education/Training Program
DX: S90.32XD Contusion of left foot, subsequent encounter (principal); S82.65XK Nondisplaced fracture of lateral malleolus of left fibula, subsequent encounter for closed fracture with nonunion; S92.002D Unspecified fracture of left calcaneus, subsequent encounter for fracture with routine healing

== ENCOUNTER → 2024-07-17 | Outpatient (CLI) | payer MEDICARE, MEDICAID ==
[~2024-07-17] MED LIST changes: +ESOM1CAP20 PO; -ESOM1CAP5 PO
== END ==
LOC: M RAD 07:02
PROVIDERS: ATTEND Student in an Organized Health Care Education/Training Program
DX: S90.32XD Contusion of left foot, subsequent encounter (principal); M19.072 Primary osteoarthritis, left ankle and foot; S82.65XD Nondisplaced fracture of lateral malleolus of left fibula, subsequent encounter for closed fracture with routine healing; S92.002D Unspecified fracture of left calcaneus, subsequent encounter for fracture with routine healing